=== PATIENT | male | born 1940 | race Caucasian/White ===

== ENCOUNTER → 2019-10-26 | Outpatient (CLI) | payer OTHER, MEDICARE ==
[~2019-10-26] MED LIST: ASPIR 8181 MG PO; ASPIRIN325 PO; ATORVASTATIN CA40 MG PO; CELEBREX 200 M200 M1 PO; IBUPROFEN 200200 M1 PO; PERCOCET PO
== END ==
LOC: SJCVC 13:59
PROVIDERS: ATTEND Internal Medicine Cardiovascular Disease
DX: R93.1 Abnormal findings on diagnostic imaging of heart and coronary circulation (principal); E78.00 Pure hypercholesterolemia, unspecified; C90.00 Multiple myeloma not having achieved remission; I25.10 Atherosclerotic heart disease of native coronary artery without angina pectoris; Z79.82 Long term (current) use of aspirin

== ENCOUNTER → 2020-05-16 | Outpatient (CLI) | payer OTHER, MEDICARE | LOC: RAD 11:27 | PROVIDERS: ATTEND Ophthalmology | DX: H57.13 Ocular pain, bilateral (principal) ==

== ENCOUNTER → 2020-06-15 | Outpatient (CLI) | payer OTHER, MEDICARE | LOC: NUC 09:20 | PROVIDERS: ATTEND Neuromusculoskeletal Medicine & OMM | DX: M81.0 Age-related osteoporosis without current pathological fracture (principal) ==

== ENCOUNTER → 2020-08-07 | Outpatient (CLI) | payer OTHER, MEDICARE | LOC: SJCVCIMAG 08:57 | PROVIDERS: ATTEND Internal Medicine Cardiovascular Disease | DX: I25.10 Atherosclerotic heart disease of native coronary artery without angina pectoris (principal); I49.3 Ventricular premature depolarization; Z79.82 Long term (current) use of aspirin; Z79.899 Other long term (current) drug therapy ==

== ENCOUNTER → 2021-05-07 | Outpatient (CLI) | payer OTHER, MEDICARE | LOC: SJCVC 10:59 | PROVIDERS: ATTEND Internal Medicine Cardiovascular Disease | DX: E78.00 Pure hypercholesterolemia, unspecified (principal); R93.1 Abnormal findings on diagnostic imaging of heart and coronary circulation; C90.00 Multiple myeloma not having achieved remission; I25.10 Atherosclerotic heart disease of native coronary artery without angina pectoris; Z72.89 Other problems related to lifestyle; Z79.82 Long term (current) use of aspirin; Z79.899 Other long term (current) drug therapy ==

== ENCOUNTER → 2021-07-26 | Outpatient (CLI) | payer OTHER, MEDICARE | LOC: RAD 11:17 | PROVIDERS: ATTEND Nurse Practitioner | DX: M47.812 Spondylosis without myelopathy or radiculopathy, cervical region (principal); M43.12 Spondylolisthesis, cervical region; G89.29 Other chronic pain ==